=== PATIENT | male | born 2000 | race Caucasian/White ===

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

== ENCOUNTER 2020-02-18 11:44 | Emergency (ER) | payer OTHER ==
[~2020-02-18 11:44] MED LIST changes: +BANZEL200 MG PO; +NAPROSYN500 MG PO; +TRILEPTAL300 MG PO; +TYLENOL325 M1 PO; +VITAMIN D32000 UNI1 PO
[2020-02-18 11:50] VITALS: BP 150/70
[2020-02-18 12:03] LABS: BASO # 0.1 10*3/uL (0.0-0.1); BASO % 0.7 % (0.0-1.0); EOS # 0.1 10*3/uL (0.0-0.4); EOS % 1.9 % (1.0-4.0); HEMATOCRIT 46.6 % (42.0-52.0); LYMPH # 2.4 10*3/uL (1.3-4.4); MEAN CELL VOLUME 88.4 fl (80.0-94.0); MEAN CORPUSCULAR HGB 28.7 pg (27.0-31.0); MEAN CORPUSCULAR HGB CONC 32.4 g/dl (33.0-37.0); MONO # 0.7 10*3/uL (0.1-1.0); MONO % 10.9 % (3.0-9.0); NEUT # 3.4 10*3/uL (2.3-7.9); NEUT % 50.2 % (47.0-73.0); PLATELET COUNT AUTOMATED 206 10*3/uL (130-400); RED BLOOD COUNT 5.27 10*6/uL (4.50-5.90); RED CELL DISTRI WIDTH 12.4 % (0-14.5); WHITE BLOOD COUNT 6.7 10*3/uL (4.8-10.8)
[2020-02-18 12:14] LABS: ACT PARTIAL THROMBO TIME 25.3 SECONDS (20.0-32.1); INTERNATIONAL NORM RATIO 0.9 (2.0-3.5)
[2020-02-18 12:19] LABS: ALBUMIN 4.1 gm/dl (3.1-4.5); ALKALINE PHOSPHATASE 88 U/L (45-117); BUN 13 mg/dl (7-24); CHLORIDE 110 mmol/L (98-107); CREATININE 0.99 mg/dL (0.70-1.30); POTASSIUM 3.8 mmol/L (3.5-5.1); SGOT/AST 17 IU/L (3-35); SGPT/ALT 51 U/L (12-78); SODIUM 144 mmol/L (136-145); TOTAL PROTEIN 7.1 gm/dL (6.4-8.2)
[2020-02-18 12:23] LABS: TROPONIN I < 0.015 ng/ml (<0.045)
[2020-02-18] MEDS ORDERED: NAPROSYN500 MG PO (13:32)
== END 2020-02-18 13:34 | disposition home or self-care (01) ==
LOC: ED 11:44
PROVIDERS: Emergency Medicine
DX: R09.1 Pleurisy (principal); R56.9 Unspecified convulsions; Z88.2 Allergy status to sulfonamides; Z88.8 Allergy status to other drugs, medicaments and biological substances; Z79.899 Other long term (current) drug therapy

== ENCOUNTER → 2020-02-24 | Outpatient (CLI) | payer OTHER | END | disposition home or self-care (01) | LOC: COVID19 10:48 | PROVIDERS: ATTEND Nurse Practitioner Family | DX: Z20.828 Contact with and (suspected) exposure to other viral communicable diseases (principal) ==

== ENCOUNTER 2020-06-29 15:59 | Emergency (ER) | payer OTHER ==
[~2020-06-29] VITALS: Wt 105.7 kg
[2020-06-29 16:07] VITALS: BP 149/84
== END 2020-06-29 19:26 | disposition home or self-care (01) ==
LOC: ED 15:59
DX: R05 Cough (principal); Z20.822 Contact with and (suspected) exposure to COVID-19; Z88.8 Allergy status to other drugs, medicaments and biological substances; Z88.2 Allergy status to sulfonamides; Z79.899 Other long term (current) drug therapy

== ENCOUNTER 2020-08-03 15:37 | Emergency (ER) | payer OTHER ==
[~2020-08-03] VITALS: Ht 175.2 cm; Wt 104.3 kg
[2020-08-03 16:01] VITALS: BP 145/78
[2020-08-03] MEDS ORDERED: ZOFRAN4 MG PO (16:34)
== END 2020-08-03 16:42 | disposition home or self-care (01) ==
LOC: ED 15:37
DX: K52.9 Noninfective gastroenteritis and colitis, unspecified (principal); Z79.899 Other long term (current) drug therapy; Z88.6 Allergy status to analgesic agent; Z88.1 Allergy status to other antibiotic agents; Z88.8 Allergy status to other drugs, medicaments and biological substances

== ENCOUNTER 2021-06-27 18:32 | Emergency (ER) | payer OTHER, MEDICARE ==
[~2021-06-27] VITALS: Wt 110.7 kg
[~2021-06-27 18:32] MED LIST changes: +ZOFRAN4 MG PO
[2021-06-27 18:43] VITALS: BP 124/64
[2021-06-27] MEDS ORDERED: FLONASE ALLERG9.9 ML NAS (19:16)
[2021-06-27] MEDS ORDERED: AMOXICILLIN500 M2 PO (19:16)
== END 2021-06-27 19:19 | disposition home or self-care (01) ==
LOC: ED 18:32
DX: J32.9 Chronic sinusitis, unspecified (principal); Z88.1 Allergy status to other antibiotic agents; Z88.8 Allergy status to other drugs, medicaments and biological substances; Z79.899 Other long term (current) drug therapy

== ENCOUNTER → 2021-11-04 | Outpatient (CLI) | payer MEDICARE, OTHER ==
[2021-11-04 19:10] LABS: BASO # 0.1 10*3/uL (0.0-0.1); BASO % 0.8 % (0.0-1.0); EOS # 0.1 10*3/uL (0.0-0.4); EOS % 0.7 % (1.0-4.0); HEMATOCRIT 46.8 % (42.0-52.0); LYMPH # 2.2 10*3/uL (1.3-4.4); LYMPH % 29.4 % (27.0-41.0); MEAN CELL VOLUME 84.6 fl (80.0-94.0); MEAN CORPUSCULAR HGB 28.8 pg (27.0-31.0); MEAN PLATELET VOLUME 10.9 fl (9.6-12.3); MONO # 0.6 10*3/uL (0.1-1.0); MONO % 8.2 % (3.0-9.0); NEUT # 4.5 10*3/uL (2.3-7.9); NEUT % 60.6 % (47.0-73.0); PLATELET COUNT AUTOMATED 222 10*3/uL (130-400); RED BLOOD COUNT 5.53 10*6/uL (4.50-5.90); RED CELL DISTRI WIDTH 12.4 % (0-14.5); WHITE BLOOD COUNT 7.4 10*3/uL (4.8-10.8)
[2021-11-04 19:33] LABS: ALKALINE PHOSPHATASE 101 U/L (45-117); BUN 6 mg/dl (7-24); CHLORIDE 108 mmol/L (98-107); POTASSIUM 3.6 mmol/L (3.5-5.1); SGOT/AST 16 IU/L (3-35); SGPT/ALT 60 U/L (12-78); SODIUM 145 mmol/L (136-145)
== END | disposition home or self-care (01) ==
LOC: LAB 18:34
PROVIDERS: ATTEND Psychiatry & Neurology Neurology
DX: G40.909 Epilepsy, unspecified, not intractable, without status epilepticus (principal); Z13.820 Encounter for screening for osteoporosis; Z79.899 Other long term (current) drug therapy

== ENCOUNTER → 2021-11-24 | Outpatient (CLI) | payer OTHER ==
[2021-11-24 15:26] LABS: ALKALINE PHOSPHATASE 96 U/L (45-117); BUN 12 mg/dl (7-24); CHLORIDE 109 mmol/L (98-107); CREATININE 0.86 mg/dL (0.70-1.30); POTASSIUM 4.1 mmol/L (3.5-5.1); SGOT/AST 19 IU/L (3-35); SGPT/ALT 59 U/L (12-78); SODIUM 143 mmol/L (136-145); TOTAL PROTEIN 7.4 gm/dL (6.4-8.2)
[2021-11-30 18:06] LABS: 7-AMINOCLONAZEPAM Negative (.); ALPRAZOLAM (XANAX) Negative ng/mL (5.0 - 25.0); CHLORDIAZE+DESMETHYLC Negative (.); CHLORDIAZEPOXIDE Negative (.); CLONAZEPAM (KLONOPIN) Negative ng/mL (20.0 - 70.0); DESALKYLFLURAZEPAM Negative ng/mL (30 - 150); DESMETHYLCHLORDIAZEPOXIDE Negative (.); DESMETHYLDIAZEPAM Negative (.); DIAZEPAM Negative (.); DIAZEPAM + DESMETHYLDIAZEPAM Negative ng/mL (200 - 2500); FLURAZEPAM Negative ng/mL (0 - 30); LORAZEPAM (ATIVAN) Negative ng/mL (50 - 240); MIDAZOLAM (VERSED) Negative ng/mL (50.0 - 600.0); OXAZEPAM Negative ng/mL (200 - 500); TEMAZEPAM (RESTORIL) Negative ng/mL (50 - 1000); TRIAZOLAM (HALCION) Negative ng/mL (5.0 - 20.0)
== END | disposition home or self-care (01) ==
LOC: LAB 13:36
PROVIDERS: ATTEND Psychiatry & Neurology Neurology
DX: G40.319 Generalized idiopathic epilepsy and epileptic syndromes, intractable, without status epilepticus (principal)

== ENCOUNTER 2021-11-28 16:03 | Emergency (ER) | payer OTHER ==
[~2021-11-28] VITALS: Ht 175.2 cm; Wt 110.7 kg
[2021-11-28 16:08] VITALS: BP 144/82
[2021-11-28] MEDS ORDERED: BANZEL200 MG PO (20:01)
[2021-11-28] MEDS ORDERED: TRILEPTAL300 MG PO (20:01)
== END 2021-11-28 20:11 ==
LOC: ED 16:03
DX: R56.9 Unspecified convulsions (principal); Z76.0 Encounter for issue of repeat prescription; Z88.8 Allergy status to other drugs, medicaments and biological substances; Z88.2 Allergy status to sulfonamides; Z79.899 Other long term (current) drug therapy

== ENCOUNTER 2022-02-09 17:31 | Emergency (ER) | payer OTHER ==
[~2022-02-09] VITALS: Wt 116.1 kg
[2022-02-09 18:13] LABS: BASO # 0.1 10*3/uL (0.0-0.1); EOS % 0.5 % (1.0-4.0); HEMATOCRIT 47.3 % (42.0-52.0); LYMPH # 2.3 10*3/uL (1.3-4.4); LYMPH % 30.6 % (27.0-41.0); MEAN CELL VOLUME 86.3 fl (80.0-94.0); MEAN CORPUSCULAR HGB 29.2 pg (27.0-31.0); MEAN CORPUSCULAR HGB CONC 33.8 g/dl (33.0-37.0); MEAN PLATELET VOLUME 11.1 fl (9.6-12.3); MONO # 0.6 10*3/uL (0.1-1.0); MONO % 7.7 % (3.0-9.0); NEUT # 4.4 10*3/uL (2.3-7.9); NEUT % 59.4 % (47.0-73.0); PLATELET COUNT AUTOMATED 242 10*3/uL (130-400); RED BLOOD COUNT 5.48 10*6/uL (4.50-5.90); WHITE BLOOD COUNT 7.4 10*3/uL (4.8-10.8)
[2022-02-09 18:32] LABS: ALKALINE PHOSPHATASE 105 U/L (45-117); BUN 14 mg/dl (7-24); CHLORIDE 110 mmol/L (98-107); CREATININE 0.98 mg/dL (0.70-1.30); POTASSIUM 4.4 mmol/L (3.5-5.1); SGOT/AST 11 IU/L (3-35); SGPT/ALT 42 U/L (12-78); SODIUM 142 mmol/L (136-145); TOTAL PROTEIN 7.4 gm/dL (6.4-8.2)
[2022-02-09 23:59] VITALS: BP 129/58
== END 2022-02-10 00:59 | disposition home or self-care (01) ==
LOC: ED 17:31
PROVIDERS: Emergency Medicine
DX: R56.9 Unspecified convulsions (principal); Z88.8 Allergy status to other drugs, medicaments and biological substances; Z88.1 Allergy status to other antibiotic agents; Z79.899 Other long term (current) drug therapy

== ENCOUNTER 2022-02-28 16:26 | Emergency (ER) | payer OTHER ==
[~2022-02-28] VITALS: Wt 113.4 kg
[2022-02-28 16:46] VITALS: BP 137/85
== END 2022-03-01 01:32 | disposition home or self-care (01) ==
LOC: ED 16:26
DX: G43.909 Migraine, unspecified, not intractable, without status migrainosus (principal); B34.9 Viral infection, unspecified; Z88.8 Allergy status to other drugs, medicaments and biological substances; Z88.2 Allergy status to sulfonamides; Z20.822 Contact with and (suspected) exposure to COVID-19

== ENCOUNTER → 2022-03-03 | Outpatient (CLI) | payer OTHER ==
[2022-03-03 10:54] LABS: ALKALINE PHOSPHATASE 90 U/L (46-116); BUN 8 mg/dl (9-23); CHLORIDE 104 mmol/L (98-107); CREATININE 0.82 mg/dL (0.70-1.30); POTASSIUM 4.1 mmol/L (3.4-5.1); SGPT/ALT 40 U/L (10-49); SODIUM 145 mmol/L (136-145); TOTAL PROTEIN 6.7 gm/dL (6.0-8.0)
== END | disposition home or self-care (01) ==
LOC: LAB 10:01
PROVIDERS: ATTEND Psychiatry & Neurology Neurology
DX: Z51.81 Encounter for therapeutic drug level monitoring (principal); R53.83 Other fatigue

== ENCOUNTER 2022-06-01 11:24 | Emergency (ER) | payer OTHER ==
[~2022-06-01] VITALS: Ht 175.2 cm; Wt 115.7 kg
[2022-06-01 11:30] VITALS: BP 154/83
[2022-06-01 13:04] LABS: BASO # 0.1 10*3/uL (0.0-0.1); BASO % 0.5 % (0.0-1.0); EOS % 0.2 % (1.0-4.0); HEMATOCRIT 46.6 % (42.0-52.0); LYMPH # 1.8 10*3/uL (1.3-4.4); LYMPH % 13.9 % (27.0-41.0); MEAN CELL VOLUME 86.6 fl (80.0-94.0); MEAN CORPUSCULAR HGB 29.2 pg (27.0-31.0); MEAN CORPUSCULAR HGB CONC 33.7 g/dl (33.0-37.0); MEAN PLATELET VOLUME 10.8 fl (9.6-12.3); MONO # 1.1 10*3/uL (0.1-1.0); MONO % 8.3 % (3.0-9.0); NEUT # 9.8 10*3/uL (2.3-7.9); NEUT % 76.5 % (47.0-73.0); PLATELET COUNT AUTOMATED 237 10*3/uL (130-400); RED BLOOD COUNT 5.38 10*6/uL (4.50-5.90); RED CELL DISTRI WIDTH 12.2 % (0-14.5); WHITE BLOOD COUNT 12.9 10*3/uL (4.8-10.8)
[2022-06-01 13:21] LABS: ALKALINE PHOSPHATASE 80 U/L (46-116); BUN 11 mg/dl (9-23); CHLORIDE 106 mmol/L (98-107); POTASSIUM 3.8 mmol/L (3.4-5.1); SGPT/ALT 62 U/L (10-49); TOTAL PROTEIN 6.4 gm/dL (6.0-8.0); VALPROIC ACID (DEPAKENE) 66.9 ug/ml (50-100)
[2022-06-01] MEDS ORDERED: KEPPRA750 MG PO (14:09)
== END 2022-06-01 14:30 | disposition home or self-care (01) ==
LOC: ED 11:24
PROVIDERS: Internal Medicine
DX: R56.9 Unspecified convulsions (principal); Z88.2 Allergy status to sulfonamides; Z88.8 Allergy status to other drugs, medicaments and biological substances

== ENCOUNTER 2022-07-15 16:17 | Emergency (ER) | payer OTHER ==
[~2022-07-15] VITALS: Ht 175.2 cm; Wt 115.7 kg
[2022-07-15 16:28] VITALS: BP 144/76
[2022-07-15] MEDS ORDERED: DEPAKOTE500 M2 PO (16:32)
[2022-07-15] MEDS ORDERED: NAYZILAM5 MG/0.1 M DEVI (16:33)
[2022-07-15 17:06] LABS: BASO # 0.1 10*3/uL (0.0-0.1); EOS # 0.1 10*3/uL (0.0-0.4); EOS % 1.8 % (1.0-4.0); HEMATOCRIT 45.9 % (42.0-52.0); LYMPH % 27.4 % (27.0-41.0); MEAN CELL VOLUME 87.6 fl (80.0-94.0); MEAN CORPUSCULAR HGB 28.6 pg (27.0-31.0); MEAN CORPUSCULAR HGB CONC 32.7 g/dl (33.0-37.0); MEAN PLATELET VOLUME 10.9 fl (9.6-12.3); MONO # 0.7 10*3/uL (0.1-1.0); MONO % 9.8 % (3.0-9.0); NEUT # 4.3 10*3/uL (2.3-7.9); NEUT % 59.3 % (47.0-73.0); PLATELET COUNT AUTOMATED 236 10*3/uL (130-400); RED BLOOD COUNT 5.24 10*6/uL (4.50-5.90); RED CELL DISTRI WIDTH 11.9 % (0-14.5); WHITE BLOOD COUNT 7.2 10*3/uL (4.8-10.8)
[2022-07-15 17:21] LABS: ALKALINE PHOSPHATASE 88 U/L (46-116); BUN 8 mg/dl (9-23); CHLORIDE 107 mmol/L (98-107); POTASSIUM 4.2 mmol/L (3.4-5.1); SGPT/ALT 69 U/L (10-49); TOTAL PROTEIN 6.2 gm/dL (6.0-8.0)
== END 2022-07-15 19:34 | disposition home or self-care (01) ==
LOC: ED 16:17
PROVIDERS: Internal Medicine
DX: R56.9 Unspecified convulsions (principal); Z88.2 Allergy status to sulfonamides; Z88.8 Allergy status to other drugs, medicaments and biological substances

== ENCOUNTER 2022-07-15 22:09 | Emergency (ER) | payer OTHER ==
[~2022-07-15] VITALS: Wt 117.9 kg
[~2022-07-15 22:09] MED LIST changes: +DEPAKOTE500 M2 PO; +NAYZILAM5 MG/0.1 M DEVI
[2022-07-15 23:36] LABS: BILIRUBIN Negative (Negative); BLOOD Negative (Negative); CLARITY Clear (Clear); COLOR Yellow (Yellow); GLUCOSE Negative (Negative); KETONE Trace (Negative); LEUKO ESTERASE Negative (Negative); NITRITE Negative (Negative); SPECIFIC GRAVITY 1.025 (1.001-1.030)
[2022-07-15 23:57] LABS: RBC 0-2 rbc/hpf (0-2); WBC 0-2 wbc/hpf (0-5)
[2022-07-16 02:37] VITALS: BP 126/72
== END 2022-07-16 03:32 | disposition home or self-care (01) ==
LOC: ED 22:09
PROVIDERS: Internal Medicine
DX: R56.9 Unspecified convulsions (principal); Z88.2 Allergy status to sulfonamides; Z88.8 Allergy status to other drugs, medicaments and biological substances

== ENCOUNTER 2023-01-10 15:08 | Emergency (ER) | payer OTHER ==
[~2023-01-10] VITALS: Ht 175.2 cm; Wt 111.1 kg
[2023-01-10 15:34] VITALS: BP 119/83
[2023-01-10] MEDS ORDERED: AMOX-CLAV 875-1 EACH PO (18:17)
== END 2023-01-10 18:30 | disposition home or self-care (01) ==
LOC: ED 15:08
DX: H66.92 Otitis media, unspecified, left ear (principal); Z88.8 Allergy status to other drugs, medicaments and biological substances; Z88.2 Allergy status to sulfonamides; Z20.822 Contact with and (suspected) exposure to COVID-19

== ENCOUNTER → 2023-02-16 | Emergency (ER) | payer OTHER ==
[~2023-02-16] VITALS: Ht 182.8 cm; Wt 117.9 kg
[~2023-02-16] MED LIST changes: +AMOX-CLAV 875-1 EACH PO
[2023-02-16 15:37] VITALS: BP 123/66
[2023-02-16 16:34] LABS: BASO # 0.1 10*3/uL (0.0-0.1); BASO % 0.9 % (0.0-1.0); EOS # 0.1 10*3/uL (0.0-0.4); EOS % 1.7 % (1.0-4.0); LYMPH # 2.8 10*3/uL (1.3-4.4); MEAN CELL VOLUME 84.6 fl (80.0-94.0); MEAN CORPUSCULAR HGB CONC 34.3 g/dl (33.0-37.0); MEAN PLATELET VOLUME 11.1 fl (9.6-12.3); MONO # 0.6 10*3/uL (0.1-1.0); MONO % 7.7 % (3.0-9.0); NEUT # 3.8 10*3/uL (2.3-7.9); NEUT % 51.4 % (47.0-73.0); PLATELET COUNT AUTOMATED 215 10*3/uL (130-400); RED BLOOD COUNT 5.44 10*6/uL (4.50-5.90); RED CELL DISTRI WIDTH 11.9 % (0-14.5); WHITE BLOOD COUNT 7.5 10*3/uL (4.8-10.8)
[2023-02-16 16:56] LABS: ACT PARTIAL THROMBO TIME 24.6 SECONDS (20.0-32.1)
[2023-02-16 16:58] LABS: ALKALINE PHOSPHATASE 98 U/L (46-116); BUN 6 mg/dl (9-23); CHLORIDE 105 mmol/L (98-107); LIPASE 31 U/L (12-53); POTASSIUM 4.1 mmol/L (3.4-5.1); SGPT/ALT 49 U/L (5-49)
[2023-02-16 17:04] LABS: ETHYL ALCOHOL < 3.0 mg/dl (<3)
[2023-02-16 19:22] LABS: BILIRUBIN Negative (Negative); BLOOD Negative (Negative); CLARITY Clear (Clear); COLOR Yellow (Yellow); GLUCOSE 3+ (Negative); KETONE 1+ (Negative); LEUKO ESTERASE Negative (Negative); NITRITE Negative (Negative); SPECIFIC GRAVITY >= 1.030 (1.001-1.030)
[2023-02-16 19:38] LABS: CALCIUM OXALATE CRYSTALS 1+; MUCOUS 1+
== END ==
LOC: ED 15:30
PROVIDERS: Internal Medicine
DX: R56.9 Unspecified convulsions (principal); R73.9 Hyperglycemia, unspecified; R10.2 Pelvic and perineal pain; E87.20 Acidosis, unspecified; Z88.2 Allergy status to sulfonamides; Z88.8 Allergy status to other drugs, medicaments and biological substances

== ENCOUNTER 2023-02-20 15:14 | Emergency (ER) | payer OTHER ==
[~2023-02-20] VITALS: Ht 175.2 cm; Wt 108.9 kg
[2023-02-20 15:23] VITALS: BP 149/103
== END 2023-02-20 19:00 | disposition left against medical advice (07) ==
LOC: ED 15:14
DX: R56.9 Unspecified convulsions (principal); Z88.2 Allergy status to sulfonamides; Z88.8 Allergy status to other drugs, medicaments and biological substances; Z53.21 Procedure and treatment not carried out due to patient leaving prior to being seen by health care provider

== ENCOUNTER 2023-04-21 15:46 | Emergency (ER) | payer OTHER ==
[~2023-04-21] VITALS: Ht 170.1 cm; Wt 90.7 kg
[2023-04-21 15:58] VITALS: BP 129/73
== END 2023-04-21 20:10 | disposition home or self-care (01) ==
LOC: ED 15:46
DX: B34.9 Viral infection, unspecified (principal); Z20.822 Contact with and (suspected) exposure to COVID-19; G40.909 Epilepsy, unspecified, not intractable, without status epilepticus; Z88.8 Allergy status to other drugs, medicaments and biological substances; Z88.2 Allergy status to sulfonamides; Z79.2 Long term (current) use of antibiotics; Z79.899 Other long term (current) drug therapy

== ENCOUNTER → 2023-08-01 | Outpatient (CLI) | payer MEDICARE, OTHER ==
[~2023-08-01] MED LIST changes: +LANTUS SOL100 UNIT/1 SC; +TRILEPTAL150 MG PO
[2023-08-01 12:11] LABS: BASO # 0.1 10*3/uL (0.0-0.1); EOS # 0.1 10*3/uL (0.0-0.4); EOS % 1.1 % (1.0-4.0); HEMATOCRIT 47.7 % (42.0-52.0); LYMPH % 42.6 % (27.0-41.0); MEAN CELL VOLUME 84.6 fl (80.0-94.0); MEAN CORPUSCULAR HGB 27.8 pg (27.0-31.0); MEAN CORPUSCULAR HGB CONC 32.9 g/dl (33.0-37.0); MEAN PLATELET VOLUME 10.9 fl (9.6-12.3); MONO # 0.8 10*3/uL (0.1-1.0); NEUT # 4.4 10*3/uL (2.3-7.9); NEUT % 46.6 % (47.0-73.0); PLATELET COUNT AUTOMATED 239 10*3/uL (130-400); RED BLOOD COUNT 5.64 10*6/uL (4.50-5.90); RED CELL DISTRI WIDTH 12.2 % (0-14.5); WHITE BLOOD COUNT 9.5 10*3/uL (4.8-10.8)
[2023-08-01 12:57] LABS: BUN 9 mg/dl (9-23); CHLORIDE 103 mmol/L (98-107); POTASSIUM 3.4 mmol/L (3.4-5.1); TOTAL PROTEIN 7.1 gm/dL (6.0-8.0); VALPROIC ACID (DEPAKENE) 67.9 ug/ml (50-100)
[2023-08-01 12:59] LABS: ALKALINE PHOSPHATASE 90 U/L (46-116); SGPT/ALT 24 U/L (5-49)
[2023-08-01 13:13] LABS: CARBAMAZEPINE (TEGRETOL) TOTAL < 0.4 ug/ml (4-12)
== END | disposition home or self-care (01) ==
LOC: LAB 11:19
PROVIDERS: ATTEND Psychiatry & Neurology Clinical Neurophysiology
DX: G40.309 Generalized idiopathic epilepsy and epileptic syndromes, not intractable, without status epilepticus (principal)

== ENCOUNTER 2024-03-22 15:19 | Emergency (ER) | payer MEDICARE, OTHER ==
[~2024-03-22] VITALS: Ht 175.2 cm; Wt 92.5 kg
[2024-03-22 15:39] VITALS: BP 133/95
[2024-03-22] MEDS ORDERED: AVPAK AZITHROM250 M1 PO (17:07)
== END 2024-03-22 17:17 | disposition home or self-care (01) ==
LOC: ED 15:19
DX: J40 Bronchitis, not specified as acute or chronic (principal); E11.9 Type 2 diabetes mellitus without complications; I10 Essential (primary) hypertension; Z88.2 Allergy status to sulfonamides; Z88.8 Allergy status to other drugs, medicaments and biological substances; Z98.890 Other specified postprocedural states

== ENCOUNTER 2024-03-23 14:38 | Emergency (ER) | payer MEDICARE, OTHER ==
[~2024-03-23] VITALS: Ht 175.2 cm; Wt 92.5 kg
[~2024-03-23 14:38] MED LIST changes: +AVPAK AZITHROM250 M1 PO
[2024-03-23] MEDS ORDERED: AZITHROMYCIN 250 MG TAB PO ONE (14:45)
[2024-03-23 14:50] VITALS: BP 109/75
== END 2024-03-23 15:06 | disposition home or self-care (01) ==
LOC: ED 14:38
DX: J40 Bronchitis, not specified as acute or chronic (principal); Z88.2 Allergy status to sulfonamides; Z88.8 Allergy status to other drugs, medicaments and biological substances; Z98.890 Other specified postprocedural states

== ENCOUNTER 2025-02-21 18:21 | Emergency (ER) | payer MEDICARE, OTHER ==
[~2025-02-21] VITALS: Ht 182.8 cm; Wt 90.3 kg
[2025-02-21] MEDS ORDERED: Ondansetron Hydrochloride 4 MG TAB SL ONE (18:45)
[2025-02-21 18:56] VITALS: BP 142/88
[2025-02-21] MEDS ORDERED: Ondansetron4 MG PO (20:13)
== END 2025-02-21 20:15 | disposition home or self-care (01) ==
LOC: ED 18:21
DX: B34.9 Viral infection, unspecified (principal); F84.0 Autistic disorder; E11.9 Type 2 diabetes mellitus without complications; K21.9 Gastro-esophageal reflux disease without esophagitis; G43.909 Migraine, unspecified, not intractable, without status migrainosus; G40.909 Epilepsy, unspecified, not intractable, without status epilepticus; Z88.8 Allergy status to other drugs, medicaments and biological substances; Z88.2 Allergy status to sulfonamides; Z79.4 Long term (current) use of insulin; Z79.899 Other long term (current) drug therapy; Z98.890 Other specified postprocedural states; Z20.822 Contact with and (suspected) exposure to COVID-19